=== PATIENT | female | born 1965 | race Caucasian/White ===

== ENCOUNTER → 2016-08-05 | Outpatient (CLI) | payer MEDICARE, OTHER | END | disposition home or self-care (01) | LOC: CPPFTMAIN 12:00 | PROVIDERS: ATTEND Family Medicine | DX: J44.9 Chronic obstructive pulmonary disease, unspecified (principal); Z71.6 Tobacco abuse counseling | CPT/HCPCS: 94060; 94726; 94729 ==

== ENCOUNTER → 2016-12-16 | Outpatient (CLI) | payer MEDICARE, OTHER ==
--- NOTE | 2016-12-16 19:15 | WWHP ---
DATE OF SERVICE: 12/16/2016 A copy sent to Dr. Shantal Kinney, primary care physician. CHIEF COMPLAINT: Patient is here for her routine gynecologic exam and mammogram. HPI: This is a 51-year-old G4, P2-0-2-2 with an LMP of 2004. She is status post RAMIREZ/BSO for benign reasons. The patient is without gynecologic complaints. PAST MEDICAL HISTORY: Type 2 diabetes, chronic hypertension, COPD, carpal tunnel syndrome and cervical spinal stenosis. MEDICATIONS: 1. NovoLog insulin 25 mg t.i.d. 2. Levemir 80 units daily. 3. Combivent 20 mcg q.i.d. 4. Vitamin D 5000 units weekly. 5. Percocet 10 mg q.i.d. 6. Cozaar 25 mg daily. 7. Pravastatin 1 daily. ALLERGIES: No known drug allergies. PAST SURGICAL HISTORY: Cervical spinal stenosis surgery 2014. Carpal tunnel surgery in 2013, trigger finger release 2013, RAMIREZ/BSO approximately 2005, colonoscopy 2014 and 2016. 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 SOCIAL HISTORY: She smokes about 3 cigarettes per day and this is down from the past. She denies alcohol and drug use. She has been with her boyfriend for more than 30 years and lives with him. She is considered disabled. She does have one grandchild. REVIEW OF SYSTEMS: She has gained about 15 pounds over the last year. She denies respiratory, cardiac, or GI problems. PHYSICAL EXAM: Blood pressure 160/101. Height 5 feet 4 inches. Weight 191 pounds. Temperature 99.2, pulse 69. This is a well-developed, heavyset white female who is alert and oriented x3 in no acute distress. HEENT is within normal limits. NECK: Supple without mass or thyromegaly. CHEST AND LUNGS: Clear to auscultation. HEART: Regular rate and rhythm. Breasts are without mass or discharge. Axillary exam is negative for adenopathy. BACK: Negative for CVA tenderness. ABDOMEN: Obese, soft, nontender, without palpable masses. PELVIC EXAM: Normal external genitalia. Vagina appears normal and there is no evidence of prolapse. Bimanual exam is negative for mass or tenderness. Rectovaginal exam is negative for mass or tenderness and is negative for occult blood. EXTREMITIES: Nontender. IMPRESSION: A 51-year-old menopausal female, status post total abdominal hysterectomy/bilateral salpingo-oophorectomy for benign reasons with normal gynecologic exam. PLAN: 1. Pap smears have been discontinued. 2. Self-breast examination was discussed. 3. Mammogram will be done today. 4. We discussed her elevated blood pressure. She states blood pressure medicine changes recently been made and she will follow up with Dr. Kinney for her elevated blood pressures. I have also recommended that she consider doing home blood pressure checks. 5. I have recommended that she try to quit smoking. 6. She will return in one year.
--- NOTE | 2016-12-17 10:16 | MM ---
Reason for exam: screening (asymptomatic). Last mammogram was performed 1 year and 1 month ago. History: Patient is postmenopausal. Physical Findings: A clinical breast exam by your physician is recommended on an annual basis and results should be correlated with mammographic findings. MG 3D Screening Mammo W/Cad Bilateral CC and MLO view(s) were taken. Prior study comparison: November 06, 2015, bilateral MG 3d screening mammo w/cad. April 11, 2014, bilateral MG screening mammo w CAD. There are scattered fibroglandular densities. There is no discrete abnormality. ASSESSMENT: Negative, BI-RAD 1 RECOMMENDATION: Routine screening mammogram of both breasts in 1 year.
== END | disposition home or self-care (01) ==
LOC: WWCWWP 09:11
PROVIDERS: ATTEND Obstetrics & Gynecology
DX: Z12.31 Encounter for screening mammogram for malignant neoplasm of breast (principal)
CPT/HCPCS: 77063; G0202

== ENCOUNTER → 2017-10-13 | Outpatient (CLI) | payer MEDICARE, OTHER ==
--- NOTE | 2017-10-13 11:25 | MR ---
EXAMINATION TYPE: MR cervical spine wo/w con DATE OF EXAM: 10/13/2017 COMPARISON: Prior MRI cervical spine 05/18/2014 HISTORY: Cervicalgia TECHNIQUE: Multiplanar, multisequence images of the cervical spine were acquired utilizing 8 mL intravenous Gada vist gadolinium contrast. Diffusion weighted imaging was performed. C2-C3: Stable and unremarkable. C3-C4: Posterior extension of endplate disc complex causes mild anterior mass effect sac, lateral ext ension towards the right causes foraminal encroachment. C4-C5: Posterior extension of endplate disc complex results in mild to moderate central canal stenosi s, lateral extension endplate disc complex results in bilateral foraminal encroachment. Findings are similar to prior exam. There may be contact due to posterior extension of endplate disc complex with the anterior cervical cord. C5-C6: There is interval improvement in the spinal stenosis, only mild stenosis change is present, en dplate disc complex extends posteriorly to cause some anterior mass effect on the thecal sac. C6-C7: Left-sided foraminal encroachment is present in the lateral extension of endplate disc complex greater than right, no significant spinal stenosis or sizable disc herniation C7-T1: Stable and unremarkable Cervical segments are intact. There is normal alignment. There is been interval anterior cervical fu corina and discectomies at C4-5-6-7. Susceptibility artifact due to patient's hardware is present. Some increased signal on T2-weighted sequences is noted at the C5-6 level within the cervical cord compat ible with residual myelomalacia. No abnormal enhancement following contrast administration. Craniover tebral junction relationships are within normal limits. IMPRESSION: Postop changes, there is signal changes within the cord as on previous. Degenerative disc disease, mu ltilevel foraminal encroachment. Interval improvement in canal stenosis at C5-6.
== END | disposition home or self-care (01) ==
LOC: RADMRIMAIN 09:35
PROVIDERS: ATTEND Physical Medicine & Rehabilitation
DX: M48.02 Spinal stenosis, cervical region (principal); M50.30 Other cervical disc degeneration, unspecified cervical region; Z98.1 Arthrodesis status
CPT/HCPCS: 72156; A9581

== ENCOUNTER → 2018-01-20 | Outpatient (CLI) | payer MEDICARE, OTHER ==
--- NOTE | 2018-01-20 10:56 | US ---
EXAMINATION TYPE: US venous doppler duplex LE DATE OF EXAM: 01/20/2018 10:05 AM COMPARISON: US 2011 CLINICAL HISTORY: E11.65 Type II Diabetes w/ Hyper glycemia. Bilateral leg pain x couple years SIDE PERFORMED: Bilateral TECHNIQUE: The lower extremity deep venous system is examined utilizing real time linear array sonog amberly with graded compression, doppler sonography and color-flow sonography. VESSELS IMAGED: External Iliac Vein (EIV) Common Femoral Vein Deep Femoral Vein Greater Saphenous Vein * Femoral Vein Popliteal Vein Small Saphenous Vein * Proximal Calf Veins (* superficial vessels) Right Leg: Appears negative for DVT Left Leg: Appears negative for DVT IMPRESSION: 1. Bilateral lower extremity venous ultrasound negative for deep venous thrombosis.
--- NOTE | 2018-01-26 11:15 | P.ARTDOP ---
Arterial Doppler LOWER EXTREMITY ARTERIAL DOPPLER: DATE OF SERVICE: 01/20/2018 Reason for study: Bilateral lower leg paresthesias. Doppler waveforms: Multiphasic bilaterally throughout without . Pulse volume recording: Normal configuration. Pressure gradients: None. Ankle-brachial indices: Greater than 1 bilaterally. Toe pressures: 128 on the right, 159 on the left Impression: Normal study.
== END | disposition home or self-care (01) ==
LOC: RADUSWWP 08:52
PROVIDERS: ATTEND Family Medicine
DX: I83.91 Asymptomatic varicose veins of right lower extremity (principal); E11.65 Type 2 diabetes mellitus with hyperglycemia; R20.2 Paresthesia of skin; M79.604 Pain in right leg; M79.605 Pain in left leg
CPT/HCPCS: 93923; 93970

== ENCOUNTER → 2018-03-15 | Outpatient (CLI) | payer MEDICARE, OTHER | END | disposition home or self-care (01) | LOC: LABWHC1 09:04 | PROVIDERS: ATTEND Physical Medicine & Rehabilitation | DX: G90.512 Complex regional pain syndrome I of left upper limb (principal); M65.321 Trigger finger, right index finger; G89.4 Chronic pain syndrome; M75.42 Impingement syndrome of left shoulder; M75.02 Adhesive capsulitis of left shoulder; M54.2 Cervicalgia; Z98.1 Arthrodesis status | CPT/HCPCS: 36415; 93005 ==

== ENCOUNTER → 2018-05-25 | Outpatient (CLI) | payer MEDICARE, OTHER ==
[2018-05-25 09:33] VITALS: BP 126/73; PULSE 72; TEMP 98.5; BMI 35.6
--- NOTE | 2018-05-25 09:59 | P.HPOB ---
History of Present Illness H&P Date: 05/25/18 Chief Complaint: The patient is here for her routine gynecologic exam and mammogram. This is a 53-year-old with an LMP of 2004. The patient is status post RAMIREZ BSO for benign reasons. The patient is without gynecologic complaints. Review of Systems The patient has gained 17 pounds over the last year. She denies respiratory, cardiac, or G.I. problems. Past Medical History Past Medical History: COPD, CVA/TIA, Diabetes Mellitus (Type II diabetes), Hyperlipidemia, Hypertension, Sleep Apnea/CPAP/BIPAP Additional Past Medical History / Comment(s): cva-2000-no residual,varicose veins, CERVICAL STENOSIS RADICULOPATHY. 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 RAMIREZ BSO was done for benign ovarian mass. History of Any Multi-Drug Resistant Organisms: None Reported Past Surgical History: Hysterectomy (RAMIREZ BSO in 2006.), Orthopedic Surgery Additional Past Surgical History / Comment(s): carpel tunnel,trigger finger release, 7-8-15 ANTERIOR CERVICAL FUSION C4-C5, C5-C6, C6-C7. Colonoscopy 2014 and 2016. Past Anesthesia/Blood Transfusion Reactions: Motion Sickness Additional Past Anesthesia/Blood Transfusion Reaction / Comment(s): CLAUSTERPHOBIA Past Psychological History: Anxiety Smoking Status: Current every day smoker (2-3 cigarettes per day.) Past Alcohol Use History: None Reported Additional Past Alcohol Use History / Comment(s): SMOKED SINCE AGE 19, DOWN TO 2 -3 CIGS/DAY. Past Drug Use History: None Reported Additional History: She has been with her boyfriend for more than 30 years and lives with him. She is disabled. - Past Family History Mother Family Medical History: Cancer (Colon cancer) Additional Family Medical History / Comment(s): ?colon Father Family Medical History: Hypertension, Myocardial Infarction ([place]) Medications and Allergies Home Medications Medication Instructions Recorded Confirmed Type Albuterol Sulfate [Proair Hfa] 1 - 2 puff INHALATION RT-Q6H PRN 12/26/14 History Insulin Aspart [NovoLOG] 20 units SQ AC-TID 12/26/14 05/25/18 History Losartan [Cozaar] 25 mg PO QAM 04/10/15 05/25/18 History Ergocalciferol [Vitamin D2 50,000 unit PO SA 11/30/15 05/25/18 History (DRISDOL)] Insulin Detemir [Levemir Flextouch] 80 unit SQ HS 11/30/15 05/25/18 History Nicotine 7Mg/24Hr Patch [Habitrol] 1 patch TOPICAL DAILY 11/30/15 05/25/18 History Atorvastatin [Lipitor] 80 mg PO HS 05/25/18 05/25/18 History Pioglitazone [Actos] 30 mg PO DAILY 05/25/18 05/25/18 History metFORMIN HCL [Glucophage] 500 mg PO BID 05/25/18 05/25/18 History Allergies Allergy/AdvReac Type Severity Reaction Status Date / Time No Known Allergies Allergy Verified 05/25/18 09:23 Exam Vital Signs Temp Pulse BP 05/25/18 09:28 98.5 F 72 126/73 Intake and Output 05/24/18 05/25/18 05/25/18 22:59 06:59 14:59 Other: Weight 94.347 kg Height 5'4", weight 208 pounds, BMI 35.7. This is a well-developed well-nourished obese white female who is alert and oriented times 3 in no acute distress. HEENT: Within normal limits. NECK: Supple without mass or thyromegaly. CHEST AND LUNGS: Clear to auscultation. HEART: Regular rate and rhythm. BREASTS: Are without mass or discharge. AXILLARY EXAM: Negative for adenopathy. BACK: Negative for CVA tenderness. ABDOMEN: Soft, nontender, without palpable masses. PELVIC EXAM: External genitalia appears normal with mild atrophy. Vagina appears normal with mild atrophy. There is no evidence of prolapse. Bimanual examination is negative for mass or tenderness. RECTAL EXAM: Rectovaginal exam is negative for mass or tenderness and is negative for occult blood. EXTREMITIES: Nontender. IMPRESSION: 1. 53-year-old menopausal female status post RAMIREZ BSO for benign reasons with normal gynecologic exam. PLAN: 1. Pap smears have been discontinued. 2. Self breast awareness was discussed with the patient. 3. Screening mammogram will be done today. 4. Osteoporosis prevention was discussed. 5. She will return in one year.
--- NOTE | 2018-05-26 15:03 | MM ---
Reason for exam: screening (asymptomatic). Last mammogram was performed 1 year and 5 months ago. History: Patient is postmenopausal. Physical Findings: A clinical breast exam by your physician is recommended on an annual basis and results should be correlated with mammographic findings. MG 3D Screening Mammo W/Cad Bilateral CC and MLO view(s) were taken. Prior study comparison: December 16, 2016, bilateral MG 3d screening mammo w/cad. November 06, 2015, bilateral MG 3d screening mammo w/cad. There are scattered fibroglandular densities. There is no discrete abnormality. No significant changes when compared with prior studies. ASSESSMENT: Negative, BI-RAD 1 RECOMMENDATION: Routine screening mammogram of both breasts in 1 year.
== END ==
LOC: WWCWWP 09:07
PROVIDERS: ATTEND Obstetrics & Gynecology
DX: Z12.31 Encounter for screening mammogram for malignant neoplasm of breast (principal)
CPT/HCPCS: 77063; 77067

== ENCOUNTER → 2018-07-20 | Outpatient (CLI) | payer MEDICARE, OTHER ==
--- NOTE | 2018-07-20 12:28 | XR ---
EXAMINATION TYPE: XR chest 2V DATE OF EXAM: 07/20/2018 COMPARISON: 01/04/2015 TECHNIQUE: PA and lateral views submitted. HISTORY: Preop FINDINGS: The lungs are clear and there is no pneumothorax, pleural effusion, or focal pneumonia. Postsurgica l changes are seen and there is a stimulator device extending into the cervical region. Arthropathy o f the shoulders. Mild cardiomegaly. Hypertrophic and degenerative change of the spine. IMPRESSION: 1. Mild cardiomegaly.
== END ==
LOC: RADXRMAIN 12:08
PROVIDERS: ATTEND Family Medicine
DX: I51.7 Cardiomegaly (principal)
CPT/HCPCS: 71046

== ENCOUNTER → 2019-01-07 | Day surgery (SDC) | payer MEDICARE, OTHER ==
[2019-01-04 15:05] VITALS: BMI 34.3
[~2019-01-07] MED LIST: BUPIVACAINE (PF) 0.5% 30 ML VIAL SQ ONE; CEFAZOLIN IV ONE; DEXAMETHASONE SOD PHOSPHATE 10 MG/ML 1 ML VIAL IV ONE; LACTATED RINGERS 1,000 ML IV SCH; LACTATED RINGERS IV ONE; LIDOCAINE 1% 20 ML VIAL (10MG/ML) FOR IV START INTRADERMA ONE; LIDOCAINE 1% INJ 10MG/ML (20 ML MDV) ONE; LIDOCAINE 1%-EPI 1:100,000 30 ML VIAL SQ ONE; MIDAZOLAM 2 MG/2 ML VIAL IV PRN; MIDAZOLAM 2 MG/2 ML VIAL ONE; ONDANSETRON 4 MG/2 ML VIAL IVP ONE; PROPOFOL 10 MG/ML 20 ML VIAL IV ONE; Pre Op ABX Message 1 EACH MISC MISCELLANE ONE; SCOPOLAMINE 1.5MG/72HR PATCH TRANSDERM ONE; fentaNYL (PF) 50 MCG/ML 2 ML AMP ONE
[2019-01-07 12:39] LABS: Glucose,Whole Blood 82 mg/dL (75-99)
[2019-01-07 14:42] VITALS: TEMP 98.7
[2019-01-07] MEDS: HYDROmorphone 0.5 MG/0.5 ML SYRINGE IVP PRN ×4 (14:54→15:12)
--- NOTE | 2019-01-07 15:06 | P.OP ---
Date of Procedure: 01/07/19 Preoperative Diagnosis: Severe right carpal tunnel syndrome Postoperative Diagnosis: Severe right carpal tunnel syndrome Procedure(s) Performed: Right endoscopic carpal tunnel release Anesthesia: NIDA, local Surgeon: Mahesh Miller Estimated Blood Loss (ml): 1 Condition: stable Disposition: PACU Indications for Procedure: The patient is a 53-year-old female who presented with severe right carpal tunnel syndrome. She developed chronic regional pain syndrome in her left hand after an open carpal tunnel release years ago and put off having treatment for the right side for fear of having a similar experience. The symptoms worsen to the point where she decided that something needed to be done. Treatment options (and associated risks and benefits) were discussed in the office and she elected to move forward with surgical release. In preop, the patient denied any additional questions or concerns. Consent forms were signed. The operative site was confirmed and marked preoperatively. Description of Procedure: The patient was brought to the operating suite and general anesthesia was administered uneventfully. She was positioned supine with the right upper extremity on an arm board. A tourniquet was applied. A time-out was performed, confirming patient identifiers, the operative side, site and the procedure to be performed: all team members expressed agreement. The right upper extremity was then prepped and draped in standard, sterile fashion. Her IV ceased functioning and had to be changed prior to the start of the case. Prophylactic antibiotics were administered. The limb was exsanguinated with an Esmarch and the tourniquet was inflated. Local anesthetic was injected into the subcutaneous tissues around the planned incision. Loupe magnification was used throughout the case for optimum visualization. A 1.5 cm transverse incision was marked just proximal to the wrist flexion crease, in line with the radial border of the ring finger. The skin was sharply incised and the subcutaneous tissues were bluntly spread. These were found to be quite dense The volar carpal fascia was identified and sharply incised. The fascia was quite tight at this level, causing additional compression on the nerve. To facilitate atraumatic exposure into the carpal tunnel, the fascia proximal and distal to the incision was released with scissors under direct visualization. A synovial elevator was inserted to release adhesions on the underside of the transverse carpal ligament. The washboard effect was palpable. A dilator was inserted to sound and enlarge the carpal tunnel. The hamate hook was palpable ulnarly. The ligament was found to be quite short and the tunnel was extremely tight. The small side-specific guide and small scope were inserted. The transverse carpal ligament was clearly visualized above. The distal edge of the ligament was identified and palpated with a probe. A rasp was used to clear the remaining synovial adhesions. The endoscopic blade was inserted and the distal half of the ligament was sharply incised. Residual distal transverse fibers were released and then the proximal portion of the ligament was divided. Wide release of ligament was visually confirmed. The camera was removed. The tourniquet was released and excellent hemostasis with held pressure. The wound was thoroughly irrigated with normal saline. The incision was closed with interrupted 4-0 Nylon sutures. Additional local anesthetic with epinephrine was injected for postoperative pain control and adjunctive hemostasis. A soft, sterile dressing was applied. All sponge, needle and instrument counts were correct at the end of the case. The patient tolerated the procedure well and was transferred to recovery in stable condition.
[2019-01-07 15:24] VITALS: BP 171/82; PULSE 6; RESP 17
[2019-01-07 15:38] LABS: Glucose,Whole Blood 143 mg/dL (75-99)
== END | disposition home or self-care (01) ==
LOC: OR 11:50
PROVIDERS: ATTEND Orthopaedic Surgery
DX: G56.01 Carpal tunnel syndrome, right upper limb (principal); G90.512 Complex regional pain syndrome I of left upper limb; E78.5 Hyperlipidemia, unspecified; J44.9 Chronic obstructive pulmonary disease, unspecified; I10 Essential (primary) hypertension; E11.40 Type 2 diabetes mellitus with diabetic neuropathy, unspecified; Z87.11 Personal history of peptic ulcer disease; J98.4 Other disorders of lung; Z90.710 Acquired absence of both cervix and uterus; Z82.49 Family history of ischemic heart disease and other diseases of the circulatory system; F17.210 Nicotine dependence, cigarettes, uncomplicated; G47.33 Obstructive sleep apnea (adult) (pediatric); F41.9 Anxiety disorder, unspecified; M48.02 Spinal stenosis, cervical region; Z97.2 Presence of dental prosthetic device (complete) (partial); Z79.51 Long term (current) use of inhaled steroids; F11.90 Opioid use, unspecified, uncomplicated; Z79.4 Long term (current) use of insulin; Z79.899 Other long term (current) drug therapy
CPT/HCPCS: 29848; J2250; J1100; J2405; J0690; J2001; J3010; J2704; J1170

== ENCOUNTER → 2020-02-13 | Outpatient (CLI) | payer MEDICARE, OTHER ==
[2020-02-13 16:09] LABS: Chol/HDL Ratio 3.71; LDL Cholesterol,Calculated 84.6 mg/dL (0.0-131.0); VLDL Calculation 18.4 mg/dL (5.00-40.00)
[2020-02-13 17:14] LABS: Hemoglobin A1C 6.4 % (4.0-6.0)
== END | disposition home or self-care (01) ==
LOC: LABWHC1 10:07
PROVIDERS: ATTEND Internal Medicine
DX: E11.65 Type 2 diabetes mellitus with hyperglycemia (principal); E55.9 Vitamin D deficiency, unspecified
CPT/HCPCS: 36415; 80061; 82306; 83036

== ENCOUNTER → 2020-12-04 | Outpatient (CLI) | payer MEDICARE, OTHER ==
[2020-12-04 12:58] VITALS: BP 109/69; PULSE 66; RESP 18; TEMP 98.7
--- NOTE | 2020-12-04 13:25 | P.HPOB ---
History of Present Illness H&P Date: 12/04/20 Chief Complaint: The patient is here for her routine gynecologic exam and ma mmogram. This is a 55-year-old with an LMP of 2004. The patient is status post RAMIREZ/BSO for benign reasons. The patient is without gynecologic complaints. Review of Systems The patient has gained 50 pounds over the last 3 years. She denies respiratory, cardiac, or G.I. problems. Past Medical History Past Medical History: COPD, CVA/TIA, Diabetes Mellitus, Hyperlipidemia, Hypertension, Sleep Apnea/CPAP/BIPAP Additional Past Medical History / Comment(s): cva-2000-no residual,varicose veins, CERVICAL STENOSIS RADICULOPATHY. CARPAL TUNNEL SYNDROME., CRPS(COMPLEX REGIONAL PAIN SYNDROME)- STATES SHE CANT USE LEFT HAND, NEUROPATHY FEET AND LEGS.. USES C-PAP MACHINE., KIDNEY STONES., HAS SPINAL CORD STIMULATOR (NEVRO FH 10) -STATES BATTERY IS IN HER CHEST. 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 History of Any Multi-Drug Resistant Organisms: None Reported Past Surgical History: Hysterectomy, Orthopedic Surgery Additional Past Surgical History / Comment(s): carpel tunnel, trigger finger release, 7-8-15 ANTERIOR CERVICAL FUSION C4-C5, C5-C6, C6-C7. Colonoscopy 2017(next after 5yr), SPINAL CORD STIMULATOR (NEVRO FH-10) Past Anesthesia/Blood Transfusion Reactions: No Reported Reaction, Motion Sickness Additional Past Anesthesia/Blood Transfusion Reaction / Comment(s): CLAUSTERPHOBIA Past Psychological History: Anxiety, Depression Smoking Status: Former smoker Past Alcohol Use History: None Reported Additional Past Alcohol Use History / Comment(s): QUIT SMOKING 08/2020. SMOKED SINCE AGE 19, SMOKED 1 1/2 PPD. Past Drug Use History: Marijuana Additional Drug Use History / Comment(s): Marijuana use in the past. - Past Family History Mother Family Medical History: Cancer Additional Family Medical History / Comment(s): ?colon Father Family Medical History: Hypertension, Myocardial Infarction ([place]) Medications and Allergies Home Medications Medication Instructions Recorded Confirmed Type Albuterol Sulfate [Proair Hfa] 1 - 2 puff INHALATION RT-Q6H PRN 12/26/14 12/04/20 History Insulin Aspart [NovoLOG] 25 units SQ BID-W/MEALS 12/26/14 12/04/20 History Ergocalciferol [Vitamin D2 50,000 unit PO SA 11/30/15 12/04/20 History (DRISDOL)] Insulin Detemir [Levemir Flextouch] 45 unit SQ BID 11/30/15 12/04/20 History Atorvastatin [Lipitor] 80 mg PO HS 05/25/18 12/04/20 History Pioglitazone [Actos] 30 mg PO DAILY 05/25/18 12/04/20 History Fluticasone/Umeclidin/Vilanter 1 inhalation INHALATION QAM 01/04/19 12/04/20 History [Trelegy Ellipta 100-62.5-25] Methadone [Dolophine] 5 mg PO BID 01/04/19 12/04/20 History oxyCODONE-APAP 10-325MG [Percocet 1 tab PO TID 01/04/19 12/04/20 History 10-325 mg] Losartan [Cozaar] 100 mg PO DAILY 05/21/20 12/04/20 History Metformin 100 mg PO BID 05/21/20 12/04/20 History amLODIPine [Norvasc] 5 mg PO DAILY 05/21/20 12/04/20 History hydroCHLOROthiazide 25 mg PO DAILY 05/21/20 12/04/20 History Allergies Allergy/AdvReac Type Severity Reaction Status Date / Time No Known Allergies Allergy Verified 12/04/20 12:47 Exam Vital Signs Temp Pulse Resp BP Pulse Ox 12/04/20 12:52 98.7 F 66 18 109/69 96 Intake and Output 12/03/20 12/04/20 12/04/20 22:59 06:59 14:59 Other: Weight 117.027 kg Height 5 feet 4 inches, weight 258 pounds, BMI 44.3. This is a well-developed well-nourished obese white female who is alert and oriented times 3 in no acute distress. HEENT: Within normal limits. NECK: Supple without mass or thyromegaly. CHEST AND LUNGS: Clear to auscultation. HEART: Regular rate and rhythm. BREASTS: Are without mass or discharge. AXILLARY EXAM: Negative for adenopathy. BACK: Negative for CVA tenderness. ABDOMEN: Soft, obese, nontender, without palpable masses. PELVIC EXAM: External genitalia appears normal with mild atrophy. Vagina appears normal with mild atrophy. There is no evidence of prolapse. Bimanual examination is negative for mass or tenderness. RECTAL EXAM: Rectovaginal exam is negative for mass or tenderness and is negative for occult blood. EXTREMITIES: Nontender. IMPRESSION: 1. 55-year-old menopausal female status post RAMIREZ/BSO for benign reasons with normal gynecologic exam. 2. Obesity PLAN: 1. Pap smears have been discontinued. 2. Self breast awareness was discussed with the patient. 3. Screening mammogram will be done today. 4. Osteoporosis prevention was discussed. I have stressed the importance of adequate calcium, vitamin D and regular exercise. Recommended amounts of calcium and vitamin D were also discussed. 5. She was advised to return in one year for her annual well woman exam.
--- NOTE | 2020-12-06 09:05 | MM ---
Reason for exam: screening (asymptomatic). Last mammogram was performed 2 years and 6 months ago. History: Patient is postmenopausal. Physical Findings: A clinical breast exam by your physician is recommended on an annual basis and results should be correlated with mammographic findings. MG 3D Screening Mammo W/Cad Bilateral CC and MLO view(s) were taken. Prior study comparison: May 25, 2018, bilateral MG 3d screening mammo w/cad. December 16, 2016, bilateral MG 3d screening mammo w/cad. There are scattered fibroglandular densities. Finding: There are segmental fine calcifications in the subareolar position of the left breast which may be vascular. New finding since May 25, 2018 and December 16, 2016. ASSESSMENT: Incomplete: need additional imaging evaluation, BI-RAD 0 RECOMMENDATION: Special view mammogram of the left breast. [facility] will attempt to contact patient to return for supplemental views.
== END ==
LOC: WWCWWP 12:18
PROVIDERS: ATTEND Obstetrics & Gynecology
DX: Z12.31 Encounter for screening mammogram for malignant neoplasm of breast (principal); Z01.419 Encounter for gynecological examination (general) (routine) without abnormal findings; E66.9 Obesity, unspecified; E11.9 Type 2 diabetes mellitus without complications; E78.5 Hyperlipidemia, unspecified; I10 Essential (primary) hypertension; J44.9 Chronic obstructive pulmonary disease, unspecified; Z86.73 Personal history of transient ischemic attack (TIA), and cerebral infarction without residual deficits; F32.9 Major depressive disorder, single episode, unspecified; F41.9 Anxiety disorder, unspecified; Z87.891 Personal history of nicotine dependence; Z79.4 Long term (current) use of insulin; Z79.51 Long term (current) use of inhaled steroids; Z79.899 Other long term (current) drug therapy; Z68.41 Body mass index [BMI] 40.0-44.9, adult; Z90.710 Acquired absence of both cervix and uterus; Z90.722 Acquired absence of ovaries, bilateral
CPT/HCPCS: 77063; 77067

== ENCOUNTER → 2020-12-07 | Outpatient (CLI) | payer MEDICARE, OTHER ==
--- NOTE | 2020-12-13 10:47 | MM ---
Reason for exam: additional evaluation requested from abnormal screening. Last mammogram was performed less than 1 month ago. History: Patient is postmenopausal. Physical Findings: Nurse did not find any significant physical abnormalities on exam. MG 3D Work Up W/Cad LT CC with magnification and ML view(s) were taken of the left breast. Prior study comparison: December 04, 2020, bilateral MG 3d screening mammo w/cad. May 25, 2018, bilateral MG 3d screening mammo w/cad. There are scattered fibroglandular densities. Calcifications compatible with benign vascular calcifications on the magnification view. These results were verbally communicated with the patient and result sheet given to the patient on 12/07/20. ASSESSMENT: Benign, BI-RAD 2 RECOMMENDATION: Return to routine screening mammogram schedule for both breasts.
== END | disposition home or self-care (01) ==
LOC: RADMAMWWP 09:31
PROVIDERS: ATTEND Obstetrics & Gynecology
DX: R92.1 Mammographic calcification found on diagnostic imaging of breast (principal); N64.89 Other specified disorders of breast
CPT/HCPCS: 77065; G0279; 77061

== ENCOUNTER 2021-02-06 06:06 | Day surgery (SDC) | payer MEDICARE, OTHER ==
[2021-02-01 17:12] VITALS: BMI 37.8
[2021-02-06 06:54] VITALS: RESP 16; TEMP 97.6
[2021-02-06] MEDS ORDERED: LACTATED RINGERS 1,000 ML IV ONE (07:10)
[2021-02-06] MEDS ORDERED: LIDOCAINE 1% INJ 10MG/ML (20 ML MDV) ONE (07:12)
[2021-02-06] MEDS ORDERED: PROPOFOL 10 MG/ML 20 ML VIAL IV ONE (07:12)
[2021-02-06 07:14] LABS: Glucose,Whole Blood 119 mg/dL (75-99)
--- NOTE | 2021-02-06 07:40 | P.PCN ---
Date of Procedure: 02/06/21 Procedure(s) Performed: BRIEF HISTORY: Patient is a 55-year-old pleasant white female scheduled for an elective colonoscopy as a part of evaluation of prior history of colon polyps and strong family history of colon cancer guidance her mother at age 34 and maternal grandmother at age 43. Her last colonoscopy was 4 years ago. PROCEDURE PERFORMED: Colonoscopy with biopsy. PREOPERATIVE DIAGNOSIS: History of colon polyps and strong family history of colon cancer. IV sedation per Anesthesia. PROCEDURE: After informed consent was obtained, the patient, was brought into the endoscopy unit. IV sedation was administered by Anesthesia under continuous monitoring. Digital rectal examination was normal. Initially the Olympus CF-160 flexible video colonoscope was inserted in the rectum, gradually advanced into the cecum without any difficulty. Careful examination was performed as the scope was gradually being withdrawn. Ileocecal valve and the appendiceal orifice were visualized and appeared normal. Prep was poor throughout the entire colon. Thorough irrigation was performed. The visualized portions of the mucosa of the cecum, ascending colon, transverse colon, descending colon appeared normal. There was a 3-4 mm sessile polyp in the sigmoid: There was removed by cold biopsy. Rest of the sigmoid colon, and rectum appeared normal. Retroflexion was performed in the rectum and no lesions were seen. The patient tolerated the procedure well. IMPRESSION: Poor prep throughout the entire colon 3-4 mm sigmoid colon polyp status post removal by cold biopsy RECOMMENDATIONS: Findings of this examination were discussed with the patient as well as a family. She was advised to follow with the biopsy results and have a repeat colonoscopy in 3 years.
[2021-02-06 08:00] VITALS: BP 119/68; PULSE 67
[2021-02-06] MEDS ORDERED: LACTATED RINGERS 1,000 ML IV SCH (08:23)
== END 2021-02-06 08:23 | disposition home or self-care (01) ==
LOC: ORWHC2ENDO 06:06
PROVIDERS: ATTEND Internal Medicine Gastroenterology
DX: D12.5 Benign neoplasm of sigmoid colon (principal); Z80.0 Family history of malignant neoplasm of digestive organs; Z86.010 Personal history of colon polyps; I10 Essential (primary) hypertension; E78.5 Hyperlipidemia, unspecified; J44.9 Chronic obstructive pulmonary disease, unspecified; G47.33 Obstructive sleep apnea (adult) (pediatric); E11.9 Type 2 diabetes mellitus without complications; Z79.4 Long term (current) use of insulin; Z79.51 Long term (current) use of inhaled steroids; Z86.73 Personal history of transient ischemic attack (TIA), and cerebral infarction without residual deficits
CPT/HCPCS: 45380; 88305; J2001; J2704

== ENCOUNTER → 2021-04-30 | Outpatient (CLI) | payer MEDICARE, OTHER | END | disposition home or self-care (01) | LOC: LABWHC1 09:25 | PROVIDERS: ATTEND Family Medicine | DX: E11.65 Type 2 diabetes mellitus with hyperglycemia (principal) | CPT/HCPCS: 36415; 83036 ==

== ENCOUNTER → 2022-01-08 | Outpatient (CLI) | payer MEDICARE, OTHER | END | disposition home or self-care (01) | LOC: LABWHC1 09:28 | PROVIDERS: ATTEND Internal Medicine | DX: E11.65 Type 2 diabetes mellitus with hyperglycemia (principal) | CPT/HCPCS: 36415; 83036 ==

== ENCOUNTER → 2022-03-18 | Outpatient (CLI) | payer MEDICARE, OTHER ==
[2022-03-18 10:58] VITALS: BP 145/87; PULSE 58; RESP 17; TEMP 98.6
--- NOTE | 2022-03-18 11:48 | P.HPOB ---
History of Present Illness H&P Date: 03/18/22 Chief Complaint: The patient is here for her routine gynecologic exam and ma mmogram. This is a 57-year-old 022 with an LMP of 2004. The patient is status post RAMIREZ/BSO for benign reasons. She is without gynecologic complaints. Review of Systems The patient has lost 40 pounds over the last year. Respiratory: Occasional COPD symptoms. She denies cardiac problems. GI: Occasional gastric reflux symptoms. Past Medical History Past Medical History: COPD, CVA/TIA, Diabetes Mellitus, GERD/Reflux, Hyperlipidemia, Hypertension, Sleep Apnea/CPAP/BIPAP Additional Past Medical History / Comment(s): cva-2000-no residual, varicose veins, Cervical stenosis/radiculopathy. CTS bilat, CRPS (Complex Regional Pain Syndrome) - no use of lt hand, Neuropathy BLE. Uses CPAP, Kidney stones, Has spinal cord stimulator (NEVRO FH 10) -States battery is in her chest. hiatal hernia. 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 History of Any Multi-Drug Resistant Organisms: None Reported Past Surgical History: Hysterectomy, Orthopedic Surgery Additional Past Surgical History / Comment(s): CTR bilat, trigger finger release, 7-8-15 ANTERIOR CERVICAL FUSION C4-C5, C5-C6, C6-C7. Colonoscopy 2021 (next after 5yr), SPINAL CORD STIMULATOR (NEVRO FH-10) Past Anesthesia/Blood Transfusion Reactions: No Reported Reaction, Motion Sickness Additional Past Anesthesia/Blood Transfusion Reaction / Comment(s): CLAUSTROPHOBIA Past Psychological History: Anxiety, Depression Smoking Status: Former smoker Past Alcohol Use History: None Reported Additional Past Alcohol Use History / Comment(s): QUIT SMOKING 08/2020. SMOKED SINCE AGE 19, SMOKED 1 1/2 PPD. Past Drug Use History: Marijuana Additional Drug Use History / Comment(s): Marijuana "uses every few days" Additional History: She has 4 grandchildren. - Past Family History Mother Family Medical History: Cancer Additional Family Medical History / Comment(s): colon Father Family Medical History: Hypertension, Myocardial Infarction ([place]) Sister(s) Family Medical History: Cancer Additional Family Medical History / Comment(s): Breast cancer in her 60s. Medications and Allergies Home Medications Medication Instructions Recorded Confirmed Type Albuterol Sulfate [Proair Hfa] 1 - 2 puff INHALATION RT-Q6H PRN 12/26/14 08/0 12/17 History Insulin Detemir [Levemir Flextouch 45 unit SQ BID 11/30/15 02/01/21 History Pen] Pioglitazone [Actos] 30 mg PO DAILY 05/25/18 02/01/21 History oxyCODONE-APAP 10-325MG [Percocet 1 tab PO TID 01/04/19 02/01/21 History 10-325 mg] Losartan [Cozaar] 100 mg PO DAILY 05/21/20 02/01/21 History amLODIPine [Norvasc] 5 mg PO DAILY 05/21/20 02/01/21 History hydroCHLOROthiazide 25 mg PO DAILY 05/21/20 02/01/21 History Dulaglutide [Trulicity] 0.75 mg SQ MO 02/01/21 02/06/21 History metFORMIN HCL [Glucophage] 500 mg PO BID 02/01/21 02/01/21 History Atorvastatin [Lipitor] 90 mg PO DAILY 03/18/22 03/18/22 History Ergocalciferol [Vitamin D2 (1250 50,000 mg PO WEEKLY 03/18/22 03/18/22 History Mcg = 83209 Iu)] Allergies Allergy/AdvReac Type Severity Reaction Status Date / Time No Known Allergies Allergy Verified 03/18/22 10:54 Exam Vital Signs Temp Pulse Resp BP Pulse Ox 03/18/22 10:55 98.6 F 58 L 17 145/87 95 Intake and Output 03/17/22 03/18/22 03/18/22 22:59 06:59 14:59 Other: Weight 98.883 kg Height 5 feet 4 inches, weight 218 pounds, BMI 37.4. This is a well-developed well-nourished female who is alert and oriented times 3 in no acute distress. HEENT: Within normal limits. NECK: Supple without mass or thyromegaly. CHEST AND LUNGS: Clear to auscultation. HEART: Regular rate and rhythm. BREASTS: Are without mass or discharge. AXILLARY EXAM: Negative for adenopathy. BACK: Negative for CVA tenderness. ABDOMEN: Soft, nontender, without palpable masses. PELVIC EXAM: External genitalia appears normal with mild atrophy. Vagina appears normal with mild atrophy. There is no evidence of prolapse. Bimanual e xamination is negative for mass or tenderness. RECTAL EXAM: Rectovaginal exam is negative for mass or tenderness and is negative for occult blood. There is a fairly large hard stool in the rectum. EXTREMITIES: Nontender. IMPRESSION: 1. 57-year-old menopausal female status post RAMIREZ/BSO for benign reasons, with normal gynecologic exam. PLAN: 1. Pap smears have been discontinued. 2. Self breast awareness was discussed with the patient. We have also discussed symptoms associated with inflammatory breast cancer. 3. Screening mammogram will be done today. 4. Osteoporosis prevention was discussed. I have stressed the importance of adequate calcium, vitamin D and regular exercise. Recommended amounts of calcium and vitamin D were also discussed. Since she had her ovaries removed at a fairly young age, we will plan on starting bone density testing before age 60. We will plan on doing bone density testing at her next well woman examination in 1 year. 5. She has completed her Covid vaccination series and has received 2 boosters. 6. She was advised to return in one year for her annual well woman exam.
--- NOTE | 2022-03-19 08:32 | MM ---
Reason for Exam: Screening (asymptomatic). Last mammogram was performed 1 year(s) and 3 month(s) ago. Patient History: Menarche at age 13. First Full-Term at age 19. Left ovary removed at age 36. Right ovary removed at age 36. Hysterectomy at age 36. Postmenopausal. Risk Values: Tamie 5 year model risk: 0.9%. NCI Lifetime model risk: 5.9%. Prior Study Comparison: 05/25/2018 Bilateral Screening Mammogram, [facility]. 12/04/2020 Bilateral Screening Mammogram, [facility]. 12/07/2020 Left Diagnostic Mammogram, [facility]. Tissue Density: The breast tissue is heterogeneously dense. This may lower the sensitivity of mammography. Findings: Analyzed By CAD. There is no suspicious group of microcalcifications or new suspicious mass in either breast. Overall Assessment: Benign, BI-RAD 2 Management: Screening Mammogram of both breasts in 1 year. A clinical breast exam by your physician is recommended on an annual basis and results should be correlated with mammographic findings. Electronically signed and approved by: Christopher Davenport M.D. Radiologis
== END ==
LOC: WWCWWP 10:19
PROVIDERS: ATTEND Obstetrics & Gynecology
DX: Z12.31 Encounter for screening mammogram for malignant neoplasm of breast (principal); Z01.419 Encounter for gynecological examination (general) (routine) without abnormal findings; J44.9 Chronic obstructive pulmonary disease, unspecified; Z86.73 Personal history of transient ischemic attack (TIA), and cerebral infarction without residual deficits; E11.9 Type 2 diabetes mellitus without complications; E78.5 Hyperlipidemia, unspecified; I10 Essential (primary) hypertension; F41.9 Anxiety disorder, unspecified; F32.A Depression, unspecified; Z87.891 Personal history of nicotine dependence; Z79.84 Long term (current) use of oral hypoglycemic drugs; Z79.4 Long term (current) use of insulin; Z90.710 Acquired absence of both cervix and uterus; Z78.0 Asymptomatic menopausal state
CPT/HCPCS: 77063; 77067

== ENCOUNTER → 2022-05-06 | Outpatient (CLI) | payer MEDICARE, OTHER | END | disposition home or self-care (01) | LOC: LABWHC1 09:21 | PROVIDERS: ATTEND Family Medicine | DX: E11.65 Type 2 diabetes mellitus with hyperglycemia (principal) | CPT/HCPCS: 36415; 83036 ==

== ENCOUNTER → 2022-10-22 | Outpatient (CLI) | payer MEDICARE, OTHER ==
--- NOTE | 2022-10-22 20:14 | CT ---
EXAMINATION TYPE: CT chest wo con CT DLP: 582 mGycm, Automated exposure control for dose reduction was used. DATE OF EXAM: 10/22/2022 4:29 PM COMPARISON: 07/20/2018 CT chest CLINICAL INDICATION:Female, 57 years old with history of I77.810, R93.89, K22.89, COPD TECHNIQUE: Multiple axial images were obtained through the chest. Sagittal and coronal reformats were created for review. Contrast used: none. Oral contrast used: none. FINDINGS: LUNGS/ PLEURA: No focal consolidation, pneumothorax or pleural effusion. No significant emphysema pre sent. AIRWAY: Patent and unremarkable. No bronchiectasis or bronchial wall thickening. HEART: Size within normal limits. Coronary artery calcifications. Lipomatous hypertrophy of interatri al septum. MEDIASTINUM: No gross evidence of adenopathy. Small hiatal hernia. Circumferential wall thickening of the esophagus measuring up to 6 mm. VASCULATURE: No aortic aneurysm. Scattered mild atherosclerosis of the arterial vasculature. MUSCULOSKELETAL: No acute osseous abnormalities, multilevel disc degeneration changes of the spine. S timulator lead in the posterior back noted. SOFT TISSUES/LYMPH NODES: Left chest wall electronic device. LOWER NECK: No significant findings. UPPER ABDOMEN: Diffuse low-attenuation to the liver parenchyma. IMPRESSION: 1. No evidence for focal consolidation, pneumothorax or pleural effusion. 2. No significant COPD changes. 3. Severe coronary artery calcifications. 4. Circumferential wall thickening of the distal esophagus correlate for esophagitis.
== END | disposition home or self-care (01) ==
LOC: RADCTMAIN 16:14
PROVIDERS: ATTEND Family Medicine
DX: I77.810 Thoracic aortic ectasia (principal); K22.89 Other specified disease of esophagus; I25.10 Atherosclerotic heart disease of native coronary artery without angina pectoris; R93.89 Abnormal findings on diagnostic imaging of other specified body structures
CPT/HCPCS: 71250

== ENCOUNTER → 2022-12-04 | Outpatient (CLI) | payer MEDICARE, OTHER | END | disposition home or self-care (01) | LOC: LABWHC1 09:08 | PROVIDERS: ATTEND Family Medicine | DX: E11.65 Type 2 diabetes mellitus with hyperglycemia (principal) | CPT/HCPCS: 36415; 83036 ==

== ENCOUNTER 2023-04-02 07:40 | Day surgery (SDC) | payer MEDICARE, OTHER ==
[2023-04-02] MEDS ORDERED: LIDOCAINE 1% (10MG/ML) FOR IV START INTRADERMA PRN (07:56)
[2023-04-02] MEDS ORDERED: LACTATED RINGERS 1,000 ML IV SCH (07:56)
[2023-04-02] MEDS ORDERED: ONDANSETRON 4 MG/2 ML VIAL IVP PRN (07:56)
[2023-04-02 08:05] VITALS: TEMP 96.9
[2023-04-02 08:09] LABS: Glucose,Whole Blood 165 mg/dL (70-110)
[2023-04-02] MEDS ORDERED: PHENYLEPHRINE-0.9% NACL SYG 1,000 MCG/10 ML SYRINGE ONE (08:46)
[2023-04-02] MEDS ORDERED: PROPOFOL 10 MG/ML 20 ML VIAL IV ONE (08:46)
[2023-04-02] MEDS ORDERED: LIDOCAINE 2% INJ 20 MG/ML (2 ML VIAL) ONE (08:46)
--- NOTE | 2023-04-02 08:51 | P.GSHP ---
History of Present Illness H&P Date: 04/02/23 Chief Complaint: GERD, dysphagia This a 58-year-old female who's had complaints of GERD dysphagia. Patient states she's has a known history of a hiatal hernia. She claims of food being stuck in her esophagus. Past Medical History Past Medical History: COPD, CVA/TIA, Diabetes Mellitus, GERD/Reflux, Hyperlipidemia, Hypertension, Sleep Apnea/CPAP/BIPAP Additional Past Medical History / Comment(s): cva-2000-no residual, varicose veins, Cervical stenosis/radiculopathy. CTS bilat, CRPS (Complex Regional Pain Syndrome) - no use of lt hand, Neuropathy BLE. Uses CPAP, Kidney stones, Has spinal cord stimulator (FarmiaRO FH 10) -States battery is in her chest. hiatal hernia. 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 History of Any Multi-Drug Resistant Organisms: None Reported Past Surgical History: Hysterectomy, Orthopedic Surgery Additional Past Surgical History / Comment(s): CTR bilat, trigger finger release, 7-8-15 ANTERIOR CERVICAL FUSION C4-C5, C5-C6, C6-C7. Colonoscopy 2021 (next after 5yr), SPINAL CORD STIMULATOR (FarmiaRO FH-10) Past Anesthesia/Blood Transfusion Reactions: No Reported Reaction, Motion Sickness Additional Past Anesthesia/Blood Transfusion Reaction / Comment(s): CLAUSTROPHOBIA Past Psychological History: Anxiety, Depression Smoking Status: Former smoker Past Alcohol Use History: None Reported Additional Past Alcohol Use History / Comment(s): QUIT SMOKING 08/2020. SMOKED SINCE AGE 19, SMOKED 1 1/2 PPD. Past Drug Use History: Marijuana Additional Drug Use History / Comment(s): Marijuana "uses every few days" - Past Family History Sister(s) Family Medical History: Cancer Additional Family Medical History / Comment(s): Breast cancer in her 60s. Mother Family Medical History: Cancer Additional Family Medical History / Comment(s): colon Father Family Medical History: Hypertension, Myocardial Infarction ([place]) Medications and Allergies Home Medications Medication Instructions Recorded Confirmed Type Albuterol Sulfate [Proair Hfa] 1 - 2 puff INHALATION RT-Q6H PRN 12/26/14 03/30/23 History Insulin Detemir [Levemir Flextouch 40 unit SQ QAM 11/30/15 04/02/23 History Pen] oxyCODONE-APAP 10-325MG [Percocet 1 tab PO TID PRN 01/04/19 04/02/23 History 10-325 mg] Losartan [Cozaar] 100 mg PO QAM 05/21/20 04/02/23 History amLODIPine [Norvasc] 5 mg PO QAM 05/21/20 04/02/23 History hydroCHLOROthiazide 25 mg PO QAM 05/21/20 04/02/23 History metFORMIN HCL [Glucophage] 1,000 mg PO QAM 02/01/21 04/02/23 History Atorvastatin [Lipitor] 90 mg PO HS 03/18/22 03/30/23 History Ergocalciferol [Vitamin D2 (1250 50,000 mg PO SA 03/18/22 03/30/23 History Mcg = 04962 Iu)] Insulin Aspart [NovoLOG Flexpen] 14 unit SQ AC-TID 03/30/23 04/02/23 History Semaglutide [Ozempic] 2.5 mg SQ MO 03/30/23 04/02/23 History Allergies Allergy/AdvReac Type Severity Reaction Status Date / Time No Known Allergies Allergy Verified 04/02/23 07:56 Surgical - Exam Vital Signs Temp Pulse Resp BP Pulse Ox 96.9 F L 85 18 162/79 94 L 04/02/23 07:55 04/02/23 07:55 04/02/23 07:55 04/02/23 07:55 04/02/23 07:55 - General well developed, well nourished, no distress - Eyes PERRL - ENT normal pinna - Neck no masses - Respiratory normal expansion - Cardiovascular Rhythm: regular - Abdomen Abdomen: soft, non tender Results - Labs Abnormal Lab Results - Last 24 Hours (Table) 04/02/23 Range/Units 08:06 POC Glucose (mg/dL) 165 H (70-110) mg/dL Assessment and Plan Assessment: GERD, dysphagia. We'll perform EGD .
--- NOTE | 2023-04-02 09:01 | P.OP ---
Date of Procedure: 04/02/23 Preoperative Diagnosis: GERD Dysphagia Postoperative Diagnosis: Antral gastritis Mild esophagitis Procedure(s) Performed: EGD Anesthesia: MAC Surgeon: Horacio Holloway Pathology: other (Antrum, esophagus) Condition: stable Disposition: PACU Description of Procedure: Patient's placed on the lateral position. She received IV sedation. The gastroscope was placed in the pharynx and passed in the esophagus into the stomach. Scope was placed through the pylorus. The first and second portion of the duodenum appeared normal. The scope was then brought back the antrum was mildly inflamed. A biopsies performed. The scope was unretroflexed and remainder the stomach appeared normal. The GE junction was at 39 cm per the distal esophagus appeared mildly inflamed. A biopsies performed. There was a small sliding hiatal hernia. The proximal esophagus appeared normal. Scope was withdrawn.
[2023-04-02 09:31] VITALS: BP 104/67; PULSE 73; RESP 18
== END 2023-04-02 09:48 | disposition home or self-care (01) ==
LOC: ORWHC2ENDO 07:40
PROVIDERS: ATTEND Surgery
DX: K29.50 Unspecified chronic gastritis without bleeding (principal); K21.00 Gastro-esophageal reflux disease with esophagitis, without bleeding; I10 Essential (primary) hypertension; E78.5 Hyperlipidemia, unspecified; G47.30 Sleep apnea, unspecified; J44.9 Chronic obstructive pulmonary disease, unspecified; F41.9 Anxiety disorder, unspecified; F32.9 Major depressive disorder, single episode, unspecified; E11.9 Type 2 diabetes mellitus without complications; Z87.442 Personal history of urinary calculi; Z86.73 Personal history of transient ischemic attack (TIA), and cerebral infarction without residual deficits; Z90.710 Acquired absence of both cervix and uterus; Z98.890 Other specified postprocedural states; Z87.891 Personal history of nicotine dependence; Z86.59 Personal history of other mental and behavioral disorders; Z80.3 Family history of malignant neoplasm of breast; Z82.49 Family history of ischemic heart disease and other diseases of the circulatory system; Z79.4 Long term (current) use of insulin; Z79.51 Long term (current) use of inhaled steroids; Z79.899 Other long term (current) drug therapy; Z79.84 Long term (current) use of oral hypoglycemic drugs
CPT/HCPCS: 88305; 43239; J2704; J2001; J2371

== ENCOUNTER → 2023-04-15 | Outpatient (CLI) | payer MEDICARE, OTHER ==
[2023-04-15 17:32] LABS: Basophils # (A) 0.08 X 10*3/uL (0.00-0.10); Basophils % (A) 0.9 %; Eosinophils # (A) 0.16 X 10*3/uL (0.04-0.35); Eosinophils % (A) 1.7 %; HCT 39.7 % (37.2-46.3); HGB 12.9 d/dL (12.0-15.0); Lymphocytes # (A) 2.21 X 10*3/uL (0.90-5.00); Lymphocytes % (A) 23.9 %; MCH 28.8 pg (27.0-32.0); MCHC 32.5 d/dL (32.0-37.0); MCV 88.6 FL (80.0-97.0); Mean Platelet Volume 11.6 FL (9.5-12.2); Monocytes # (A) 0.65 X 10*3/uL (0.20-1.00); NRBC Per 100 WBC 0 X 10*3/uL (0.00-0.01); Neutrophils # (A) 6.04 X 10*3/uL (1.80-7.70); Neutrophils % (A) 65.5 %; Platelet Count 225 X 10*3/uL (140-440); RBC 4.48 X 10*6/uL (4.10-5.20); RDW 13.9 % (11.5-14.5); WBC 9.23 X 10*3/uL (4.50-10.00)
== END | disposition home or self-care (01) ==
LOC: LABPAT 09:36
PROVIDERS: ATTEND Surgery
DX: Z01.812 Encounter for preprocedural laboratory examination (principal); K21.00 Gastro-esophageal reflux disease with esophagitis, without bleeding
CPT/HCPCS: 85025

== ENCOUNTER 2023-05-05 09:00 | Day surgery (SDC) | payer MEDICARE, OTHER ==
[2023-04-30 16:26] VITALS: BMI 36.3
[~2023-05-05 09:00] MED LIST changes: +ACETAMINOPHEN TAB 500 MG TAB PO PRN; -BUPIVACAINE (PF) 0.5% 30 ML VIAL SQ ONE; -CEFAZOLIN IV ONE; -DEXAMETHASONE SOD PHOSPHATE 10 MG/ML 1 ML VIAL IV ONE; +DEXAMETHASONE SOD PHOSPHATE 4 MG/ML 1 ML VIAL IV ONE; +HEPARIN SODIUM,PORCINE/PF 5,000 UNIT/0.5 ML SYRINGE SQ PRN; +HYDROmorphone 0.5 MG/0.5 ML SYRINGE IVP PRN; -LACTATED RINGERS 1,000 ML IV SCH; -LACTATED RINGERS IV ONE; +LIDOCAINE 1% (10MG/ML) FOR IV START INTRADERMA PRN; -LIDOCAINE 1% 20 ML VIAL (10MG/ML) FOR IV START INTRADERMA ONE; -LIDOCAINE 1% INJ 10MG/ML (20 ML MDV) ONE; -LIDOCAINE 1%-EPI 1:100,000 30 ML VIAL SQ ONE; -MIDAZOLAM 2 MG/2 ML VIAL IV PRN; -MIDAZOLAM 2 MG/2 ML VIAL ONE; -PROPOFOL 10 MG/ML 20 ML VIAL IV ONE; -Pre Op ABX Message 1 EACH MISC MISCELLANE ONE; +SCOPOLAMINE 1 MG/72 HR PATCH TRANSDERM ONE; -SCOPOLAMINE 1.5MG/72HR PATCH TRANSDERM ONE; -fentaNYL (PF) 50 MCG/ML 2 ML AMP ONE
[2023-05-05] MEDS: LACTATED RINGERS 1,000 ML IV SCH (09:43)
[2023-05-05 09:55] LABS: Glucose,Whole Blood 126 mg/dL (70-110)
[2023-05-05] MEDS ORDERED: fentaNYL (PF) 50 MCG/ML 2 ML AMP ONE (11:05)
[2023-05-05] MEDS ORDERED: HYDROmorphone (PF) 1 MG/ML ONE (11:05)
[2023-05-05] MEDS ORDERED: ROCURONIUM 10 MG/ML (5 ML VIAL) IV ONE (11:05)
[2023-05-05] MEDS ORDERED: PROPOFOL 10 MG/ML 20 ML VIAL IV ONE (11:05)
[2023-05-05] MEDS ORDERED: KETAMINE HCL IN 0.9 % NACL 50 MG/5 ML SYRINGE ONE (11:05)
[2023-05-05] MEDS ORDERED: MIDAZOLAM 2 MG/2 ML VIAL ONE (11:05)
[2023-05-05] MEDS ORDERED: SUCCINYLCHOLINE CHLORIDE 200 MG/10 ML VIAL IV ONE (11:05)
[2023-05-05] MEDS ORDERED: GLYCOPYRROLATE 0.2 MG/ML 2 ML VIAL ONE (11:05)
[2023-05-05] MEDS ORDERED: LIDOCAINE 1% INJ 10MG/ML (20 ML MDV) ONE (11:05)
[2023-05-05] MEDS ORDERED: NEOSTIGMINE 1 MG/ML 10 ML VIAL ONE (11:05)
[2023-05-05] MEDS ORDERED: BUPIVACAINE (PF) 0.5% 30 ML VIAL SQ ONE (11:33)
[2023-05-05] MEDS ORDERED: ONDANSETRON 4 MG/2 ML VIAL IVP PRN (12:04)
[2023-05-05] MEDS ORDERED: NALOXONE 0.4 MG/ML 1 ML VIAL IV PRN (12:04)
[2023-05-05] MEDS ORDERED: LACTATED RINGERS 1,000 ML IV ONE ×2 (12:04→12:22)
--- NOTE | 2023-05-05 12:04 | P.OP ---
Date of Procedure: 05/05/23 Preoperative Diagnosis: GERD Postoperative Diagnosis: GERD Procedure(s) Performed: Laparoscopic Jerilyn fundal plication Anesthesia: NIDA Surgeon: Horacio Holloway Estimated Blood Loss (ml): 10 Pathology: none sent Condition: stable Disposition: PACU Description of Procedure: HarThe patient was placed on the operating table in the supine position. The patient received general anesthesia. And was placed in dorsal lithotomy position. The patient was prepped and draped in the usual sterile fashion. The skin incision sites were anesthetized with 1% local Xylocaine. The skin was incised in the left periumbilical area and then using a blade less 5 mm trocar under direct visualization panel cavity was entered. After adequate insufflation the laparoscope was then placed into the peritoneal cavity. Next a 5 mm trochars placed in the right epigastric position. Another 5 millimeter trocar the right lateral position. Another 5 millimeter trocar in the left lateral position a 5 mm trocar is placed in the left epigastric position. And then the initial 5 mm trocar was exchanged for a 10 mm trocar. The left lateral lobe liver was retracted. The hernia was seen. The crural defect was then dissected using the Harmonic scissors device. A 360 crural dissection was performed the esophagus stomach was reduced back into the peritoneal Cavity. The crural defect was then closed using 2-0 Ethibond suture. Next the fundus of the stomach was mobilized using the Bainbridge scissors device. and then a 58- [place] bougie dilator was placed oropharynx passed into the esophagus and stomach the fundal plication wrap was then performed by grasping the fundus p osteriorly and bringing it around the esophagus and stomach fundoplication was then performed using 2-0 Ethibond suture. Care was taken that the fundal location rested over top of the intra-abdominal esophagus. There was no injury seen to the stomach or esophagus. The dilator was then withdrawn. The abdomen was irrigated there is no bleeding seen. The trochars were then withdrawn and then skin incision sites were closed using 3-0 Monocryl suture Steri-Strips are applied. Patient thought procedure well and sent to recovery room in stable condition.
[2023-05-05 13:03] LABS: Glucose,Whole Blood 202 mg/dL (70-110)
[2023-05-05] MEDS ORDERED: ONDANSETRON 4 MG/2 ML VIAL IVP ONE (13:11)
[2023-05-05] MEDS ORDERED: DEXTROSE 50% SYRINGE 50 ML IVP PRN ×2 (14:49)
[2023-05-05] MEDS ORDERED: ALBUTEROL HFA INHALER INHALATION PRN (14:50)
[2023-05-05] MEDS: HYDROmorphone 1 MG/ML 1 ML SYRINGE IVP PRN ×3 (14:56→21:01)
[2023-05-05] MEDS: IPRATROPIUM 0.5 MG/2.5 ML NEBU INHALATION SCH ×2 (15:17→20:35)
[2023-05-05] MEDS: HYDROcodone/APAP 5-325MG 1 EACH TAB PO PRN (17:21)
[2023-05-05 17:32] LABS: Glucose,Whole Blood 159 mg/dL (70-110)
[2023-05-05] MEDS: INSULIN ASPART (NovoLOG) 100 UNIT/ML VIAL SQ SCH ×2 (17:52→20:50)
[2023-05-05] MEDS: traMADol 50 MG TAB PO PRN (20:05)
[2023-05-05] MEDS: SYMBICORT 80-4.5 MCG INHALER INHALATION SCH (20:35)
[2023-05-05 20:45] LABS: Glucose,Whole Blood 143 mg/dL (70-110)
[2023-05-05] MEDS ORDERED: TOPIRAMATE 25 MG TAB PO SCH (21:00)
[2023-05-06] MEDS: HYDROmorphone 1 MG/ML 1 ML SYRINGE IVP PRN ×2 (01:19→05:56)
[2023-05-06] MEDS: LACTATED RINGERS 1,000 ML IV SCH (01:19)
[2023-05-06] MEDS: HYDROcodone/APAP 5-325MG 1 EACH TAB PO PRN ×2 (02:39→08:36)
[2023-05-06] MEDS ORDERED: INSULIN DETEMIR (LEVEMIR) 100 UNIT/ML SYR SQ SCH (07:00)
[2023-05-06 07:39] LABS: Glucose,Whole Blood 116 mg/dL (70-110)
[2023-05-06] MEDS: SYMBICORT 80-4.5 MCG INHALER INHALATION SCH (08:07)
[2023-05-06] MEDS: IPRATROPIUM 0.5 MG/2.5 ML NEBU INHALATION SCH ×2 (08:08→11:56)
[2023-05-06 08:11] VITALS: RESP 18; TEMP 97.9
[2023-05-06] MEDS: INSULIN ASPART (NovoLOG) 100 UNIT/ML VIAL SQ SCH (08:33)
[2023-05-06] MEDS: traMADol 50 MG TAB PO PRN (08:35)
[2023-05-06] MEDS ORDERED: DAPAGLIFLOZIN PROPANEDIOL 10 MG TABLET PO SCH (09:00)
[2023-05-06] MEDS ORDERED: ENOXAPARIN 40 MG/0.4 ML SYRINGE SQ SCH (09:00)
[2023-05-06] MEDS ORDERED: amLODIPine 5 MG TAB PO SCH (09:00)
[2023-05-06 09:01] VITALS: BP 150/84; PULSE 69
--- NOTE | 2023-05-06 10:05 | P.DS ---
Providers Expected date of discharge: 05/06/23 Attending physician: Horacio Holloway Consults: 05/05/23 12:04 Consult Physician Routine Consulting Provider: Samuel Gordon Consult Reason/Comments: Medical management Do you want consulting provider notified?: Yes Primary care physician: Shantal Kinney Hospital Course: Discharge diagnosis 1. GERD status post laparoscopic Jerilyn fundoplication Hospital course This is a 58-year-old female with a known history of GERD. She is status post laparoscopic Jerilyn fundoplication. She tolerated surgery well. Her pain is controlled. She is tolerating diet. She has been up and ambulating. She is afebrile. She is stable for discharge. Please refer to chart for any further details. Physician Nib Finisher note has been reviewed by physician. Signing provider agrees with the documented findings, assessment, and plan of care. Patient Condition at Discharge: Stable Plan - Discharge Summary Discharge Rx Participant: Yes New Discharge Prescriptions: Continue Albuterol Sulfate [Proair Hfa] 1 - 2 puff INHALATION RT-Q6H PRN PRN Reason: sob Insulin Detemir [Levemir Flextouch Pen] 40 unit SQ QAM oxyCODONE-APAP 10-325MG [Percocet 10-325 mg] 1 tab PO TID PRN PRN Reason: Pain Losartan [Cozaar] 100 mg PO QAM amLODIPine [Norvasc] 5 mg PO QAM hydroCHLOROthiazide 25 mg PO QAM metFORMIN HCL [Glucophage] 1,000 mg PO QAM Ergocalciferol [Vitamin D2 (1250 Mcg = 92424 Iu)] 50,000 mg PO SA Dapagliflozin Propanediol [Farxiga] 10 mg PO DAILY Topiramate 50 mg PO HS Atorvastatin [Lipitor] 90 mg PO HS Semaglutide [Ozempic] 2.5 mg SQ MO Insulin Aspart [NovoLOG Flexpen] 14 unit SQ AC-TID Fluticasone/Umeclidin/Vilanter [Trelegy Ellipta 100-62.5-25] 1 inhalation INHALATION DAILY Discharge Medication List Albuterol Sulfate [Proair Hfa] 1 - 2 puff INHALATION RT-Q6H PRN 12/26/14 [History] Insulin Detemir [Levemir Flextouch Pen] 40 unit SQ QAM 11/30/15 [History] oxyCODONE-APAP 10-325MG [Percocet 10-325 mg] 1 tab PO TID PRN 01/04/19 [History] Losartan [Cozaar] 100 mg PO QAM 05/21/20 [History] amLODIPine [Norvasc] 5 mg PO QAM 05/21/20 [History] hydroCHLOROthiazide 25 mg PO QAM 05/21/20 [History] metFORMIN HCL [Glucophage] 1,000 mg PO QAM 02/01/21 [History] Atorvastatin [Lipitor] 90 mg PO HS 03/18/22 [History] Ergocalciferol [Vitamin D2 (1250 Mcg = 29842 Iu)] 50,000 mg PO SA 03/18/22 [History] Insulin Aspart [NovoLOG Flexpen] 14 unit SQ AC-TID 03/30/23 [History] Semaglutide [Ozempic] 2.5 mg SQ MO 03/30/23 [History] Dapagliflozin Propanediol [Farxiga] 10 mg PO DAILY 04/30/23 [History] Fluticasone/Umeclidin/Vilanter [Trelegy Ellipta 100-62.5-25] 1 inhalation INHALATION DAILY 04/30/23 [History] Topiramate 50 mg PO HS 04/30/23 [History] Follow up Appointment(s)/Referral(s): Shantal Kinney MD [Primary Care Provider] - 1 Week Horacio Holloway MD [STAFF PHYSICIAN] - 1 Week Ambulatory/Diagnostic Orders: Basic Metabolic Panel [LAB.AMB] Location: None Selected Complete Blood Count w/diff [LAB.AMB] Time Frame: 3 Days, Location: None Select ed Activity/Diet/Wound Care/Special Instructions: No driving while taking Percocet No lifting over 10 pounds Shower daily. No soaking or tub baths for 2 weeks Very light activity until you are reevaluated at your follow up appointment with your surgeon Discharge Disposition: HOME SELF-CARE
[2023-05-06 10:45] LABS: Basophils # (A) 0.1 k/uL (0-0.2); Basophils % (A) 0 %; Eosinophils # (A) 0.1 k/uL (0-0.7); Eosinophils % (A) 1 %; HCT 39.2 % (34.0-46.0); HGB 13.4 gm/dL (11.4-16.0); Lymphocytes # (A) 2.9 k/uL (1.0-4.8); Lymphocytes % (A) 20 %; MCH 29.3 pg (25.0-35.0); MCHC 34.1 g/dL (31.0-37.0); MCV 85.8 fL (80.0-100.0); Mean Platelet Volume 11.2; Monocytes # (A) 0.9 k/uL (0-1.0); Monocytes % (A) 6 %; Neutrophils # (A) 10.3 k/uL (1.3-7.7); Neutrophils % (A) 71 %; Platelet Count 212 k/uL (150-450); RBC 4.57 m/uL (3.80-5.40); RDW 13.6 % (11.5-15.5); WBC 14.4 k/uL (3.8-10.6)
[2023-05-06 11:59] LABS: Glucose,Whole Blood 98 mg/dL (70-110)
--- NOTE | 2023-05-06 16:29 | P.CONS ---
History of Present Illness - Reason for Consult Consult date: 05/06/23 - History of Present Illness This is a 58 year old female with medical history of COPD, CVA/TIA, Diabetes Mellitus, GERD, Hypertension, hyperlipidemia, sleep apnea, spinal cord stimulator, CRPS. Patient comes in for scheduled laproscopic santos fundloplication for gastroesophageal reflux disease. Patient has been resumed on home medications postoperatively. Passing gas. Reports minimal abdominal pain. On room air. Hemodynamically she is stable and has mild elevated white count of 14 post procedure which is expected and likely reactive. Patient has been encouraged to continue the IS 10 x an hour and increase activity level. Will remain on full liquid diet for 2 weeks no straws or carbonation recommended. Patient to see Dr. Holloway in the office next week. Has a follow up with PCP on 05/15/23. Medically she is stable for DC home when cleared by surgery. REVIEW OF SYSTEMS: CONSTITUTIONAL: No fever, no malaise, no fatigue. HEENT: No recent visual problems or hearing problems. Denied any sore throat. CARDIOVASCULAR: No chest pain, orthopnea, PND, no palpitations, no syncope. PULMONARY: No shortness of breath, no cough, no hemoptysis. GASTROINTESTINAL: No diarrhea, no nausea, no vomiting, no abdominal pain. NEUROLOGICAL: No headaches, no weakness, no numbness. HEMATOLOGICAL: Denies any bleeding or petechiae. GENITOURINARY: Denies any burning micturition, frequency, or urgency. MUSCULOSKELETAL/RHEUMATOLOGICAL: Denies any joint pain, swelling, or any muscle pain. ENDOCRINE: Denies any polyuria or polydipsia. The rest of the 14-point review of systems is negative. PHYSICAL EXAMINATION: GENERAL: The patient is alert and oriented x3, not in any acute distress. Well developed, well nourished. HEENT: Pupils are round and equally reacting to light. EOMI. No scleral icterus. No conjunctival pallor. Normocephalic, atraumatic. No pharyngeal erythema. No thyromegaly. CARDIOVASCULAR: S1 and S2 present. No murmurs, rubs, or gallops. PULMONARY: Chest is clear to auscultation, no wheezing or crackles. ABDOMEN: Soft, nontender, nondistended, normoactive bowel sounds. No palpable organomegaly. Post surgical incisions intact clean dry. MUSCULOSKELETAL: No joint swelling or deformity. EXTREMITIES: No cyanosis, clubbing, or pedal edema. NEUROLOGICAL: Gross neurological examination did not reveal any focal deficits. SKIN: No rashes. 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 Resumed on all same home medications. Recommend to continue incentive spirometer Thank you for this consultation. The impression and plan of care has been dictated by Kelyl Gray, Nurse Practitioner as directed. Dr. Rufino MD I have performed a history and physical examination and medical decision making of this patient, discussed the same with the dictator, and agree with the dictators assessment and plan as written, documented as a scribe. Based on total visit time, I have performed more than 50% of this visit. Past Medical History Past Medical History: COPD, CVA/TIA, Diabetes Mellitus, GERD/Reflux, Hyperlipidemia, Hypertension, Sleep Apnea/CPAP/BIPAP Additional Past Medical History / Comment(s): cva-2000-no residual, varicose veins, Cervical stenosis/radiculopathy. CTS bilat, CRPS (Complex Regional Pain Syndrome) - no use of lt hand, Neuropathy BLE. Uses CPAP, Kidney stones, Has spinal cord stimulator (NEVRO FH 10) -States battery is in her chest. hiatal hernia. History of Any Multi-Drug Resistant Organisms: None Reported Past Surgical History: Hysterectomy, Orthopedic Surgery Additional Past Surgical History / Comment(s): CTR bilat, trigger finger release, 7-8-15 ANTERIOR CERVICAL FUSION C4-C5, C5-C6, C6-C7. Colonoscopy 2021 (next after 5yr), SPINAL CORD STIMULATOR (NEVRO FH-10), EGD Past Anesthesia/Blood Transfusion Reactions: No Reported Reaction, Motion Sickness Additional Past Anesthesia/Blood Transfusion Reaction / Comm: CLAUSTROPHOBIA Smoking Status: Former smoker - Past Family History Sister(s) Family Medical History: Cancer Additional Family Medical History / Comment(s): Breast cancer in her 60s. Mother Family Medical History: Cancer Additional Family Medical History / Comment(s): colon Father Family Medical History: Hypertension, Myocardial Infarction (CO) Medications and Allergies Home Medications Medication Instructions Recorded Confirmed Type Albuterol Sulfate [Proair Hfa] 1 - 2 puff INHALATION RT-Q6H PRN 12/26/1401/18 History Insulin Detemir [Levemir Flextouch 40 unit SQ QAM 11/30/15 05/05/23 History Pen] oxyCODONE-APAP 10-325MG [Percocet 1 tab PO TID PRN 01/04/19 05/05/23 History 10-325 mg] Losartan [Cozaar] 100 mg PO QAM 05/21/20 05/05/23 History amLODIPine [Norvasc] 5 mg PO QAM 05/21/20 05/05/23 History hydroCHLOROthiazide 25 mg PO QAM 05/21/20 05/05/23 History metFORMIN HCL [Glucophage] 1,000 mg PO QAM 02/01/21 05/05/23 History Atorvastatin [Lipitor] 90 mg PO HS 03/18/22 05/05/23 History Ergocalciferol [Vitamin D2 (1250 50,000 mg PO SA 03/18/22 05/05/23 History Mcg = 89997 Iu)] Insulin Aspart [NovoLOG Flexpen] 14 unit SQ AC-TID 03/30/23 05/05/23 History Semaglutide [Ozempic] 2.5 mg SQ MO 03/30/23 05/05/23 History Dapagliflozin Propanediol [Farxiga] 10 mg PO DAILY 04/30/23 05/05/23 History Fluticasone/Umeclidin/Vilanter 1 inhalation INHALATION DAILY 04/30/23 05/05/23 History [Trelegy Ellipta 100-62.5-25] Topiramate 50 mg PO HS 04/30/23 05/05/23 History Allergies Allergy/AdvReac Type Severity Reaction Status Date / Time No Known Allergies Allergy Verified 05/05/23 09:43 Physical Exam Vitals: Vital Signs Temp Pulse Pulse Pulse Resp BP Pulse Ox 05/06/23 08:25 69 150/84 05/06/23 08:19 86 05/06/23 08:08 85 05/06/23 07:20 97.9 F 70 18 167/81 95 05/06/23 07:05 98.3 F 78 78 20 165/98 97 05/06/23 01:09 97.5 F L 76 20 168/98 97 05/05/23 20:44 84 05/05/23 20:39 81 05/05/23 19:55 18 05/05/23 19:09 81 20 149/78 92 L 05/05/23 16:46 77 18 141/84 94 L 05/05/23 15:45 72 166/84 90 L 05/05/23 15:41 69 75 05/05/23 15:25 60 05/05/23 15:18 68 05/05/23 15:15 70 159/81 92 L 05/05/23 14:45 67 194/94 93 L 05/05/23 14:30 67 161/93 97 05/05/23 14:15 63 166/92 98 05/05/23 14:00 61 165/82 97 05/05/23 13:45 97.7 F 75 19 155/85 96 05/05/23 13:08 69 16 136/62 96 05/05/23 12:53 65 16 148/65 96 05/05/23 12:38 74 16 176/79 96 05/05/23 12:23 97.2 F L 87 20 182/89 100 05/05/23 09:44 97.8 F 78 155/74 97 Intake and Output 05/05/23 05/06/23 05/06/23 22:59 06:59 14:59 Intake Total 240 240 Balance 240 240 Intake: Oral 240 240 Other: Voiding Method Toilet Toilet # Voids 1 2 Results CBC & Chem 7: 05/06/23 06:34 Labs: Abnormal Lab Results - Last 24 Hours (Table) 05/05/23 05/05/23 05/05/23 Range/Units 09:54 13:01 17:31 POC Glucose (mg/dL) 126 H 202 H 159 H (70-110) mg/dL 05/05/23 05/06/23 Range/Units 20:43 07:21 POC Glucose (mg/dL) 143 H 116 H (70-110) mg/dL Assessment and Plan Time with Patient: Less than 30
[2023-05-06] MEDS ORDERED: ATORVASTATIN 80 MG TAB PO SCH (21:00)
[2023-05-07] MEDS ORDERED: LOSARTAN 50 MG TAB PO SCH (09:00)
== END 2023-05-06 12:00 | disposition home or self-care (01) ==
LOC: OR 09:00 → 5NMEDONC 12:21 → OR 05-06 12:00
PROVIDERS: ATTEND Surgery
DX: K21.9 Gastro-esophageal reflux disease without esophagitis (principal); J44.9 Chronic obstructive pulmonary disease, unspecified; I63.9 Cerebral infarction, unspecified; E11.9 Type 2 diabetes mellitus without complications; E78.5 Hyperlipidemia, unspecified; I10 Essential (primary) hypertension; G47.33 Obstructive sleep apnea (adult) (pediatric); Z90.710 Acquired absence of both cervix and uterus; Z98.890 Other specified postprocedural states; Z82.49 Family history of ischemic heart disease and other diseases of the circulatory system; Z80.3 Family history of malignant neoplasm of breast; Z87.891 Personal history of nicotine dependence
CPT/HCPCS: 43450; 94640 ×2; J1100; J0690; J2405; J1170; J1644; J0665; 83036; 85025

== ENCOUNTER → 2023-05-08 | Outpatient (CLI) | payer MEDICARE, OTHER ==
[2023-05-08 16:01] LABS: Basophils # (A) 0.08 X 10*3/uL (0.00-0.10); Eosinophils % (A) 2.5 %; HCT 44.7 % (37.2-46.3); HGB 14.1 g/dL (12.0-15.0); Lymphocytes % (A) 28.3 %; MCH 28.2 pg (27.0-32.0); MCHC 31.5 g/dL (32.0-37.0); MCV 89.4 FL (80.0-97.0); Mean Platelet Volume 12.5 FL (9.5-12.2); Monocytes # (A) 0.72 X 10*3/uL (0.20-1.00); Monocytes % (A) 8.9 %; NRBC Per 100 WBC 0 X 10*3/uL (0.00-0.01); Neutrophils # (A) 4.74 X 10*3/uL (1.80-7.70); Neutrophils % (A) 58.3 %; Platelet Count 198 X 10*3/uL (140-440); RDW 13.2 % (11.5-14.5); WBC 8.12 X 10*3/uL (4.50-10.00)
[2023-05-08 16:21] LABS: BUN/Creat Ratio 13.89 Ratio (12.00-20.00); Blood Urea Nitrogen 12.5 mg/dL (9.0-27.0); Calcium 10.2 mg/dL (8.7-10.3); Carbon Dioxide 28.6 mmol/L (21.6-31.8); Chloride 104 mmol/L (96-109); Glucose 110 mg/dL (70-110); Potassium 4.7 mmol/L (3.5-5.5); Sodium 145 mmol/L (135-145)
== END | disposition home or self-care (01) ==
LOC: LABWHC1 08:50
PROVIDERS: ATTEND Surgery
DX: Z00.00 Encounter for general adult medical examination without abnormal findings (principal)
CPT/HCPCS: 36415; 80048; 85025

== ENCOUNTER → 2024-02-22 | Outpatient (CLI) | payer MEDICARE, OTHER ==
[2024-02-22 16:26] LABS: ALT 22 U/L (8-44); AST 23 U/L (13-35); Albumin 4.3 g/dL (3.8-4.9); Albumin/Globulin Ratio 1.54 Ratio (1.60-3.17); Alkaline Phosphatase 115 U/L (41-126); Blood Urea Nitrogen 15.2 mg/dL (9.0-27.0); Calcium 9.4 mg/dL (8.7-10.3); Carbon Dioxide 22.7 mmol/L (21.6-31.8); Chloride 109 mmol/L (96-109); Chol/HDL Ratio 4.17 Ratio; Globulin 2.8 g/dL (1.6-3.3); Glucose 155 mg/dL (70-110); LDL Cholesterol,Calculated 86.5 mg/dL (0.0-131.0); Potassium 4.2 mmol/L (3.5-5.5); Sodium 144 mmol/L (135-145); Total Bilirubin 0.2 mg/dL (0.3-1.2); Total Protein 7.1 g/dL (6.2-8.2)
== END | disposition home or self-care (01) ==
LOC: LABWHC1 09:32
PROVIDERS: ATTEND Internal Medicine
DX: E11.65 Type 2 diabetes mellitus with hyperglycemia (principal)
CPT/HCPCS: 36415; 80053; 80061; 82043; 82570; 83036